=== PATIENT | male | born 1940 | race Caucasian/White ===

== ENCOUNTER 2017-08-19 12:28 | Outpatient (CLI) | payer MEDICARE, BC | END 2017-08-19 12:29 | disposition home or self-care (01) | LOC: BICMRI 12:28 | PROVIDERS: ATTEND Psychiatry & Neurology Neurology | DX: I61.0 Nontraumatic intracerebral hemorrhage in hemisphere, subcortical (principal); G31.9 Degenerative disease of nervous system, unspecified | CPT/HCPCS: 70544 ==

== ENCOUNTER 2025-02-21 10:49 | Outpatient (CLI) | payer MEDICARE ==
[2025-02-21 11:28] LABS: Estimated GFR - POC 59.0
== END 2025-02-21 10:50 | disposition home or self-care (01) ==
LOC: SCSMRI 10:49
PROVIDERS: ATTEND Internal Medicine
DX: R97.20 Elevated prostate specific antigen [PSA] (principal)
CPT/HCPCS: 36415; 72197; 82565